=== PATIENT | female | born 1955 | race Caucasian/White ===

== ENCOUNTER 2017-07-20 12:38 | Emergency (ER) | END 2017-07-20 21:26 | disposition short-term general hospital (02) ==

== ENCOUNTER 2017-08-02 02:31 | Emergency (ER) | END 2017-08-02 06:53 | disposition home or self-care (01) ==

== ENCOUNTER 2018-01-11 18:40 | Emergency (ER) | END 2018-01-11 23:26 | disposition home or self-care (01) ==